=== PATIENT | female | born 1970 | race Two or more races ===

== ENCOUNTER 2023-04-11 23:32 | Emergency (ER) | payer SELFPAY ==
[~2023-04-11] VITALS: Ht 154.9 cm; Wt 72.7 kg
[2023-04-11 23:37] VITALS: BP 100/71; PULSE 68; RESP 16; O2SAT 100
[2023-04-12 00:07] LABS: Basophils # (auto) 0 10 ^3/uL (0-0.2); Basophils % (auto) 0.5 % (0.0-2.0); Eosinophils # (auto) 0.1 10 ^3/uL (0-0.8); Eosinophils % (auto) 1.2 % (0.0-7.0); Hematocrit 45.6 % (36.0-46.0); Hemoglobin 15.3 g/dL (12.2-16.2); Lymphocytes # (auto) 2.4 10 ^3/uL (0.4-5.4); Lymphocytes % (auto) 25.8 % (10.0-50.0); Mean Corpuscular Hemoglobin 29.2 pg (28.0-32.0); Mean Corpuscular Hgb Conc. 33.4 g/dL (32.0-36.0); Mean Corpuscular Volume 87.3 fL (80.0-100.0); Monocytes # (auto) 0.5 10 ^3/uL (0-1.3); Monocytes % (auto) 5.9 % (0.0-12.0); Neutrophils # (auto) 6.1 10 ^3/uL (1.6-8.6); Neutrophils % (auto) 66.6 % (37.0-80.0); Nucleated Red Blood Cells % 0.1 %; Red Blood Cells 5.23 10^6/uL (4.0-5.20); Red Cell Distribution Width 14.7 % (11.8-14.3); White Blood Cell 9.2 10^3/uL (4.4-10.8)
[2023-04-12 00:23] LABS: BUN/Creatinine Ratio 11.3 (10.0-20.0); Calcium 9.1 mg/dL (8.5-10.1); Potassium 3.2 mmol/L (3.5-5.1)
[2023-04-12 00:25] LABS: Bilirubin, Total 0.9 mg/dL (0.2-1.0)
[2023-04-12] MEDS ORDERED: MAALOX PLUS or MAALOX 30 ML PO ONE (01:45)
[2023-04-12] MEDS ORDERED: LIDOCAINE VISCOUS 2% 15ML UD MT ONE (01:45)
== END 2023-04-12 03:02 | disposition left against medical advice (07) ==
LOC: ER 23:46
DX: K29.70 Gastritis, unspecified, without bleeding (principal); I12.9 Hypertensive chronic kidney disease with stage 1 through stage 4 chronic kidney disease, or unspecified chronic kidney disease; N18.9 Chronic kidney disease, unspecified
CPT/HCPCS: 36415; 80053; 85025